=== PATIENT | female | born 1955 | race Two or more races ===

== ENCOUNTER 2020-01-03 10:33 | Emergency (ER) | payer OTHER, MEDICAID ==
[~2020-01-03] VITALS: Ht 165.1 cm; Wt 61.0 kg
[2020-01-03] MEDS ORDERED: SODIUM CHLORIDE 0.9% 1,000 ML IV ONE (10:50)
[2020-01-03 11:21] LABS: BASOPHILS % 0.6 % (0.0-2.0); EOSINOPHILS % 1.5 % (0.0-5.0); HEMATOCRIT. 38.5 % (36.0-48.0); LYMPHOCYTES % 44.2 % (20.0-50.0); MEAN CORPUSCULAR HEMOGLOBIN 31.1 pg (28.0-32.0); MEAN PLATELET VOLUME 8.5 fl (7.4-10.4); MONOCYTES % 7.8 % (2.0-8.0); NEUTROPHILS % 45.9 % (40.0-76.0); PLATELET 212 x1000/uL (130-400); RED BLOOD CELL COUNT 4.19 mill/uL (4.2-5.4); RED CELL DISTRIBUTION WIDTH 13.4 % (11.6-14.6)
[2020-01-03 11:30] LABS: CHLORIDE 107 mEq/L (98-107)
[2020-01-03 11:35] LABS: ETHANOL BLOOD < 10 mg/dL
[2020-01-03 11:49] LABS: PARTIAL THROMBOPLASTIN TIME 28.4 sec (23.4-31.0); PROTHROMBIN TIME 10.9 sec (9.6-11.0)
[2020-01-03 12:00] LABS: CLARITY URINE CLEAR (CLEAR); COLOR URINE YELLOW (YELLOW); KETONES URINE NEGATIVE (NEGATIVE); LEUKOCYTE ESTERASE URINE NEGATIVE (NEGATIVE); NITRITE URINE NEGATIVE (NEGATIVE); OCCULT BLOOD URINE NEGATIVE (NEGATIVE); PH URINE 6.5 (4.5-8.0); PROTEIN URINE NEGATIVE (NEGATIVE); SPECIFIC GRAVITY URINE 1.014 (1.005-1.030); UROBILINOGEN URINE 0.2 E.U./dL (0.2-1.0)
[2020-01-03 12:12] LABS: *AMPHETAMINES SCREEN URINE NEGATIVE (NEGATIVE); *BARBITURATES SCREEN URINE NEGATIVE (NEGATIVE); *BENZODIAZEPINES SCREEN URINE PRESUMTIVE POSITIVE (NEGATIVE); *COCAINE SCREEN URINE NEGATIVE (NEGATIVE)
[2020-01-03 12:13] LABS: CANNABINOID URINE SCREEN NEGATIVE (NEGATIVE); METHADONE URINE SCREEN NEGATIVE (NEGATIVE)
[2020-01-03 12:15] LABS: PHENCYCLIDINE URINE SCREEN NEGATIVE (NEGATIVE)
[2020-01-03 12:18] LABS: OPIATES URINE SCREEN PRESUMTIVE POSITIVE (NEGATIVE)
[2020-01-03] MEDS ORDERED: CEFTRIAXONE 1 G PREMIX 50 ML IV ONE (12:30)
[2020-01-03] MEDS ORDERED: AZITHROMYCIN 500 MG in DEXT 5% WATER 250 ML IV ONE (12:30)
[2020-01-03] MEDS ORDERED: METRONIDAZOLE 500 MG PREMIX 100 ML IV ONE (12:45)
[2020-01-03 15:00] VITALS: BP 120/65
== END 2020-01-03 14:24 | disposition short-term general hospital (02) ==
LOC: ER 10:33 → EDBD 10:33 → ER 14:24
DX: T50.912A Poisoning by multiple unspecified drugs, medicaments and biological substances, intentional self-harm, initial encounter (principal); R20.0 Anesthesia of skin; Y92.89 Other specified places as the place of occurrence of the external cause
CPT/HCPCS: 36415; 70450; 71045; 80053; 80305; 80307; 80320; 80329; 81003; 83605; 84484; 85025; 85610; 85730; 87040; 87086; 93005; 96365; 96366; 96368; 99285; C9803; J0456; J0696; J3490; J7030; J7060; U0003; G0480